=== PATIENT | female | born 1995 | race Asian ===

== ENCOUNTER 2019-04-14 07:21 | Emergency (ER) | payer OTHER ==
[~2019-04-14] VITALS: Ht 152.4 cm; Wt 44.5 kg
[2019-04-14 07:25] VITALS: BP 98/74
--- NOTE | 2019-04-14 07:32 | Emergency Room Report ---
History of Present Illness General Chief Complaint: Overdose Source: Patient, EMS Present Illness HPI Disclaimer: Please note that this report is being documented using DRAGON technology. This can lead to erroneous entry secondary to incorrect interpretation by the dictating instrument. HPI: 24-year-old with no reported medical history presents for evaluation after an apparent heroin overdose. The patient states she was snorting and smoking heroin approximately 2 hours ago. She lost consciousness and the people around her a difficulty arousing her. They called EMS. EMS found her awake but not responding to them verbally. She was given Narcan with good response. She became more alert and responsive. She then started complaining of nausea. There was no vomiting. No other complaints at this time. Denies any recent fevers, chills, chest pain, difficulty breathing, cough, abdominal pain, vomiting or diarrhea. LMP was 3 weeks ago. Denies possibility of . No other complaints at this time. PMH: Drug abuse PSH: None Allergies: None reported Social Hx: Heroin use Allergies: Coded Allergies: No Known Allergies (Unverified , 04/14/19) Patient History Now: No Review of Systems All Other Systems: negative except mentioned in HPI Physical Exam Vital Signs Date Time Temp Pulse Resp B/P (MAP) Pulse Ox O2 Delivery O2 Flow Rate FiO2 04/14/19 07:16 98.2 93 16 143/100 (114) 98 Room Air General: Awake and alert, no acute distress HEENT: NC/AT. EOMI. Chest Wall: No tenderness, no deformity Cardiovascular: RRR. S1 and S2 normal. No murmur appreciated Resp: Normal work of breathing. No cough, wheezing or crackles appreciated Abdomen: Abdomen is soft, nondistended. Nontender Skin: Intact. No abrasions, laceration or rash over the exposed skin MSK: Normal tone and bulk. Moving all extremities. No obvious deformity. Neuro: Awake and alert. Mentating appropriately. Medical Decision Making Diagnostic Impression: Primary Impression: Heroin abuse Additional Impression: Nausea ER Course 24-year-old female presents for evaluation of nausea after receiving Narcan in the field for suspected drug overdose. There is no respiratory depression noted by EMS she was simply not responding to their verbal cues. She arrives with stable vital signs, no respiratory distress, no other symptoms aside from nausea. She is refusing to give urine for test but denies the possibility of . She will be monitored in the emergency department and given antiemetics. Do not believe she requires other emergent labs or imaging at this time. Reevaluation Time: 08:43 Last Vital Signs Date Time Temp Pulse Resp B/P (MAP) Pulse Ox O2 Delivery O2 Flow Rate FiO2 04/14/19 07:16 98.2 93 16 143/100 (114) 98 Room Air Status: improved Reevaluation Impression Patient remains comfortable with stable vital signs, no respiratory distress. Complaining of mild intermittent nausea but no vomiting. Mother is now here who will take the patient after discharge to voluntary inpatient abuse program. She is well-appearing with stable vital signs. Do not believe she requires emergent labs or imaging at this time. Will be discharged to her mother's care to take her to outpatient addiction center. Discussed reasons to return to the emergency department. They understand and agree with this treatment plan. Disposition: HOME, SELF-CARE Condition: Stable Scripts Ondansetron Odt* (ZOFRAN ODT*) 4 Mg Tab.rapdis 4 MG BC EVERY 6 HOURS PRN for Nausea & Vomiting, #10 TAB 0 Refills Prov: Chun Rodriguez MD 04/14/19 Chun Rodriguez MD Apr 14, 2019 07:32
[2019-04-14] MEDS ORDERED: ONDANSETRON ODT4 MG BC (08:43)
[2019-04-14 08:50] VITALS: BP 96/76
== END 2019-04-14 08:50 | disposition home or self-care (01) ==
LOC: EDBD 07:21 → EMR 07:38
DX: F11.10 Opioid abuse, uncomplicated (principal); R11.0 Nausea
CPT/HCPCS: 99283